=== PATIENT | female | born 1955 | race Caucasian/White ===

== ENCOUNTER → 2022-11-30 | Day surgery (SDC) | payer OTHER | END | disposition home or self-care (01) | LOC: JRADIR 09:29 | PROVIDERS: ATTEND Internal Medicine Endocrinology, Diabetes & Metabolism | PROC: 0G9K3ZX Drainage of Thyroid Gland, Percutaneous Approach, Diagnostic (ICD-10-PCS; principal; 2022-11-30) | DX: E04.1 Nontoxic single thyroid nodule (principal) | CPT/HCPCS: 10005; 76942; 88173; 88305-TC ==

== ENCOUNTER 2023-11-23 13:01 | Emergency (ER) | payer OTHER ==
[2023-11-23 13:33] VITALS: BP 146/55; PULSE 58; RESP 17; TEMP 98.3; BMI 23.0
[2023-11-23 14:40] LABS: BASO % 0.9 % (0-2.0); EOS % 3.2 % (0-4.5); HEMATOCRIT 29.8 % (32.4-45.2); HEMOGLOBIN 9.5 GM/dL (10.7-15.3); LYMPH % 40.9 % (8-40); MCH 22.6 pg (25.7-33.7); MEAN CELL VOLUME 70.6 fl (80-96); MEAN PLT VOLUME 7.5 fl (7.5-11.1); MONO % 7.5 % (3.8-10.2); NEUT % 47.5 % (42.8-82.8); PLATELET COUNT 493 10^3/uL (134-434); RBC 4.21 M/mm3 (3.60-5.2); RDW 16.6 % (11.6-15.6); WHITE BLOOD COUNT 5.7 K/mm3 (4.0-10.0)
[2023-11-23 14:56] LABS: POTASSIUM 3.8 mmol/L (3.5-5.1)
[2023-11-23 14:57] LABS: INR 0.9 (0.83-1.09); PROTHROMBIN TIME (PATIENT) 10.2 SEC (9.7-13.0)
[2023-11-23 14:58] LABS: BLOOD UREA NITROGEN 18.7 mg/dL (7-18); CALCIUM 10.3 mg/dL (8.5-10.1)
[2023-11-23 14:59] LABS: ALBUMIN 4.2 g/dl (3.4-5.0)
[2023-11-23 15:02] LABS: CREATININE 0.8 mg/dL (0.55-1.3)
[2023-11-23 15:03] LABS: BILIRUBIN,TOTAL 0.4 mg/dL (0.2-1)
== END 2023-11-23 15:34 | disposition home or self-care (01) ==
LOC: JER 13:01
DX: D64.9 Anemia, unspecified (principal)
CPT/HCPCS: 36415; 80053; 82728; 83540; 83550; 85025; 85610; 85730; 86850; 86900; 86901; 99283-25